=== PATIENT | female | born 1990 | race Caucasian/White ===

== ENCOUNTER 2025-07-22 11:29 | Emergency (ER) | payer OTHER ==
[~2025-07-22] VITALS: Ht 162.6 cm; Wt 118.4 kg
[2025-07-22] MEDS ORDERED: DICYCLOMINE HCL 10 MG CAPSULE PO ONE (12:19)
[2025-07-22] MEDS: IV LR 1000 ML 1,000 ML IV ONE (12:25)
[2025-07-22] MEDS: DICYCLOMINE HCL 10 MG CAPSULE PO ONE (12:27)
[2025-07-22 12:32] LABS: PLATELET COUNT (AUTO) 262 K/uL (150-450); RED BLOOD CELL COUNT(AUTO) 5.22 MIL/uL (4.0-5.2); RED CELL DISTRIBUTION WIDTH 12.8 % (11.5-15.0); WHITE BLOOD COUNT (AUTO) 10.8 K/uL (4.3-11.0)
[2025-07-22 12:43] LABS: CALCIUM, SERUM 8.5 mg/dL (8.5-10.1); CREATININE 0.8 mg/dL (0.6-1.3); SODIUM SERUM 135.0 mmol/L (136-145); UREA NITROGEN, BLOOD 12.0 mg/dL (7-18)
[2025-07-22 12:49] LABS: ASPARTATE AMINOTRANSFERASE 16.0 U/L (15-37); TOTAL PROTEIN, SERUM 6.5 g/dL (6.4-8.2)
[2025-07-22] MEDS ORDERED: LOPE2CAP40 PO (13:26)
[2025-07-22 13:42] VITALS: BP 128/77; TEMP 97.9; O2SAT 98
== END 2025-07-22 13:42 | disposition home or self-care (01) ==
LOC: ER 11:35
DX: R19.7 Diarrhea, unspecified (principal); R11.0 Nausea; E11.9 Type 2 diabetes mellitus without complications; F14.10 Cocaine abuse, uncomplicated; I10 Essential (primary) hypertension; K58.9 Irritable bowel syndrome, unspecified
CPT/HCPCS: 99283; 96360; 85025; 80048; 83690; 80076; J7120 ×2